=== PATIENT | male | born 1960 | race African-American/Black ===

== ENCOUNTER 2017-02-03 19:29 | Emergency (ER) | payer MEDICAID, OTHER ==
[~2017-02-03] VITALS: Ht 182.9 cm; Wt 91.0 kg
[2017-02-03 19:31] VITALS: Ht 182.9 cm; Wt 91.0 kg
[2017-02-03] MEDS ORDERED: ASPIRIN 325 MG TAB PO STA (20:19)
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
[2017-02-03 20:57] LABS: ADD SCAN DIFF NO
[2017-02-03] MEDS ORDERED: morphine 4 MG/ML VIAL IV STA (20:57)
[2017-02-03] MEDS ORDERED: ONDANSETRON 4 MG INJ IV STA (21:01)
[2017-02-03] MEDS ORDERED: ONDANSETRON 4 MG INJ ONE (21:08)
--- NOTE | 2017-02-03 21:11 | RADRPT ---
PROCEDURE: XR Chest. CLINICAL INDICATION: Chest pain. TECHNIQUE: Single frontal view of the chest. COMPARISON: None. FINDINGS: Cardiomegaly. The lungs are clear. No signs of pleural fluid or pneumothorax are seen. The osseous structures and soft tissues are unremarkable. IMPRESSION: No evidence for active cardiopulmonary disease. RPTAT: [facility] Physician María Date Time Electronically viewed and signed by Amber Rubio Physician on 02/03/2017 21:10 RS/
[2017-02-03 21:18] LABS: BASOPHILS % 0.3 % (0.0-2.0); EOSINOPHILS # 0.2 10^3/ul (0.0-0.5); EOSINOPHILS % 2.4 % (0.0-7.0); HEMATOCRIT 34.6 % (42.0-52.0); HEMOGLOBIN 11.7 g/dl (14.0-18.0); LYMPHOCYTES # 2.3 10^3/ul (0.8-2.9); MEAN CORPUSCULAR HEMOGLOBIN 31.6 pg (29.0-33.0); MEAN CORPUSCULAR HGB CONC 33.8 g/dl (32.0-37.0); MEAN CORPUSCULAR VOLUME 93.5 fl (82.0-101.0); MEAN PLATELET VOLUME 9.3 fl (7.4-10.4); MONOCYTE # 0.5 10^3/ul (0.3-0.9); MONOCYTES % 7.1 % (0.0-11.0); NEUTROPHIL # 3.3 10^3/ul (1.6-7.5); PLATELET COUNT 297 10^3/UL (140-415); RED CELL DISTRIBUTION WIDTH 12.5 % (11.5-14.5); WHITE BLOOD COUNT 6.3 10^3/ul (4.8-10.8)
[2017-02-03 21:19] LABS: INR 0.95; PARTIAL THROMBOPLASTIN TIME 24.8 Sec (25.0-35.0); PROTIME 12.7 Sec (12.2-14.2)
[2017-02-03 21:21] LABS: ALANINE AMINOTRANSFERASE 23 IU/L (13-69); ALBUMIN 4.5 g/dl (3.3-4.9); ALBUMIN/GLOBULIN RATIO 1.73; ALKALINE PHOSPHATASE 87 IU/L (42-121); ANION GAP 10 (8-16); ASPARTATE AMINO TRANSFERASE 21 IU/L (15-46); BLOOD UREA NITROGEN 15 mg/dl (7-20); CALCIUM 9.3 mg/dl (8.4-10.2); CARBON DIOXIDE 25 mmol/L (21-31); CHLORIDE 106 mmol/L (97-110); CREATININE 1.14 mg/dl (0.61-1.24); GLUCOSE 281 mg/dl (70-220); SODIUM 137 mmol/L (135-144); TOTAL PROTEIN 7.1 g/dl (6.1-8.1)
[2017-02-03 21:33] LABS: TROPONIN-I < 0.012 ng/ml (0.00-0.12)
[2017-02-03] MEDS ORDERED: OXYC5CAP17 PO (22:45)
[2017-02-03] MEDS ORDERED: FAMO-96 PO (22:48)
[2017-02-03] MEDS ORDERED: TAMS-14 PO (22:48)
[2017-02-03] MEDS ORDERED: NAPR-260 PO (22:48)
[2017-02-03 23:15] VITALS: BP 128/68; PULSE 72; RESP 18; TEMP 98.6
== END 2017-02-03 23:16 | disposition home or self-care (01) ==
LOC: FTE 19:29
DX: M25.512 Pain in left shoulder (principal); M62.838 Other muscle spasm; G89.29 Other chronic pain; E11.9 Type 2 diabetes mellitus without complications; I10 Essential (primary) hypertension; F17.210 Nicotine dependence, cigarettes, uncomplicated; R07.9 Chest pain, unspecified; Z79.82 Long term (current) use of aspirin; Z98.61 Coronary angioplasty status; Z79.84 Long term (current) use of oral hypoglycemic drugs
CPT/HCPCS: 71010; 80053; 84484; 85025; 85610; 85730; 93005; J2270; J2405; Z7610; 36415; 96374; 96375